=== PATIENT | male | born 1980 | race Caucasian/White ===

== ENCOUNTER 2023-11-12 13:45 | Emergency (ER) | payer OTHER, SELFPAY ==
[2023-11-12 13:48] VITALS: BP 123/74; PULSE 104; RESP 18; TEMP 36.5; O2SAT 95; BMI 30.4
[2023-11-12] MEDS: diphenhydrAMINE 50 mg/mL SDV 1mL 25 MG IVP (14:02)
[2023-11-12] MEDS: methylPREDNISolone sod succ 125 mg/2 mL INJ IVP (14:03)
[2023-11-12] MEDS: famotidine 20 mg/2 mL INJ 40 MG IVP (14:03)
--- NOTE | 2023-11-12 14:59 | W.ED.ALLEREA ---
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 No shortness of breath. No throat swelling. No tongue swelling. He has a diffuse rash over his whole body with hives. Related Data Previous Rx's Medication Instructions Recorded hydroxyzine HCl 25 mg tablet 25 mg PO BID PRN anxiety #30 tabs 11/12/23 prednisone 20 mg tablet 60 mg (3 x 20 mg) PO DAILY 5 days 11/12/23 #15 tabs Review of Systems Narrative: Constitutional symptoms: Negative except as documented in HPI. Skin symptoms: Negative except as documented in HPI. Eye symptoms: Negative except as documented in HPI. ENMT symptoms: Negative except as documented in HPI. Respiratory symptoms: Negative except as documented in HPI. Cardiovascular symptoms: Negative except as documented in HPI. Gastrointestinal symptoms: Negative except as documented in HPI. Genitourinary symptoms: Negative except as documented in HPI. Musculoskeletal symptoms: Negative except as documented in HPI. Neurologic symptoms: Negative except as documented in HPI. Psychiatric symptoms: Negative except as documented in HPI. Endocrine symptoms: Negative except as documented in HPI. Physical Exam Narrative: EXAM NARRATIVE: General: Alert, no acute distress. Skin: Warm, dry. Diffuse urticaria and erythema on arms chest and back. Head: Normocephalic, atraumatic. Neck: Supple, trachea midline. Eye: Extraocular movements are intact. Ears, nose, mouth and throat: mucosa moist. Cardiovascular: Regular, Normal peripheral perfusion. Respiratory: Lungs are clear to auscultation, respirations are non-labored, breath sounds are equal, Symmetrical chest wall expansion. Gastrointestinal: Soft, Nontender, Non distended Musculoskeletal: Normal ROM, no deformity. Neurological: Alert and oriented, No focal neurological deficit observed. Psychiatric: Cooperative, appropriate mood & affect. Course Vital Signs: Vital signs: Vital Signs Temperature 97.7 F 11/12/23 13:48 Pulse Rate 104 H 11/12/23 13:48 Respiratory Rate 18 11/12/23 13:48 Blood Pressure 123/74 11/12/23 13:48 Pulse Oximetry 95 11/12/23 13:48 Oxygen Delivery Me thod Room Air 11/12/23 13:48 MDM - Allergic Reaction Medical Decision Making Assessment and plan: Wasp sting Urticaria ? IV Solu-Medrol, IV Benadryl and IV Pepcid in the emergency room - Discharged home - Discussed plan with patient. Answered any questions. - Evaluation and treatment of this problem were appropriate in the emergency setting. No radiology studies performed this visit Discharge Plan Discharge Patient Disposition: Home Clinical Impression: Urticaria, Allergic reaction, Wasp sting Condition: Stable Prescriptions: New prednisone 20 mg tablet 60 mg PO DAILY 5 Days Qty: 15 0RF hydroxyzine HCl 25 mg tablet 25 mg PO BID PRN (Reason: anxiety) Qty: 30 0RF Discharge Orders: Discharge ED (Routine); Ordered 11/12/23 Ordered By: Kailey Romero Discharge Diet: Usual diet Discharge Activity: Increase activity as tolerated Patient Instructions: Urticaria (ED), Insect Bite or Sting (ED) Activity Restrictions/Additional Instructions: Thank you for choosing [facility] for your healthcare needs today. Please realize this is an emergency room and that we are providing you with a medical screening exam and this may not be complete and all inclusive of all the testing and or work up that you may need to determine your ailment or severity of your illness. You have been screened and evaluated and felt safe for discharge. Health conditions do change or evolve sometimes and as such it is important that you follow up with your Primary Doctor to be re checked, 3-5 days is a general good time frame for follow up. 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
[2023-11-12] MEDS: ondansetron 2 mg/ML SDV 2 mL 4 MG IVP (15:44)
== END 2023-11-12 15:46 | disposition home or self-care (01) ==
PROVIDERS: Emergency Provider Emergency Medicine
DX: L50.9 Urticaria, unspecified (principal); T63.461A Toxic effect of venom of wasps, accidental (unintentional), initial encounter
CPT/HCPCS: 96374; 96375; 99284; J1200; J2405; J2919; J3490